=== PATIENT | male | born 1945 | race Caucasian/White ===

== ENCOUNTER → 2016-11-11 | Outpatient (CLI) | payer OTHER ==
[2016-11-11 09:06] LABS: HEMOGLOBIN 18.5 gm/dl (14.0-17.5); RED BLOOD COUNT 6.78 M/UL (4.20-5.50)
== END ==
LOC: LAB 08:32
PROVIDERS: Internal Medicine Hematology & Oncology
DX: D75.1 Secondary polycythemia (principal); D50.8 Other iron deficiency anemias
CPT/HCPCS: 36415; 85025

== ENCOUNTER → 2020-07-31 | Outpatient (CLI) | payer OTHER ==
[~2020-07-31] MED LIST: COSOPT EYE DROP10 ML EYEBOTH; ECOTRIN81 MG PO; MOBIC15 MG PO; NORVASC10 MG PO; PROSCAR5 MG PO; TRUSOPT 2% OP S10 ML EYEBOTH; XALATAN OP SOL2.5 ML EYEBOTH; ZOCOR20 MG PO
[2020-07-31 08:41] LABS: HEMOGLOBIN 18.4 gm/dl (14.0-17.5); RED BLOOD COUNT 6.64 M/UL (4.20-5.50); WHITE BLOOD COUNT 8.5 K/UL (4.5-11.0)
== END ==
LOC: LAB 08:26
PROVIDERS: Internal Medicine
DX: D75.1 Secondary polycythemia (principal); D58.8 Other specified hereditary hemolytic anemias
CPT/HCPCS: 36415; 85025

== ENCOUNTER → 2020-09-04 | Outpatient (CLI) | payer OTHER ==
[2020-09-04 09:12] LABS: HEMOGLOBIN 18.4 gm/dl (14.0-17.5); RED BLOOD COUNT 6.62 M/UL (4.20-5.50); WHITE BLOOD COUNT 7.7 K/UL (4.5-11.0)
== END ==
LOC: LAB 08:43
PROVIDERS: Internal Medicine
DX: D75.1 Secondary polycythemia (principal); D50.8 Other iron deficiency anemias
CPT/HCPCS: 36415; 85025

== ENCOUNTER → 2020-09-25 | Outpatient (CLI) | payer OTHER ==
[2020-09-25 09:11] LABS: HEMOGLOBIN 17.4 gm/dl (14.0-17.5); RED BLOOD COUNT 6.56 M/UL (4.20-5.50); WHITE BLOOD COUNT 6.9 K/UL (4.5-11.0)
== END ==
LOC: LAB 08:46
PROVIDERS: Internal Medicine
DX: D75.1 Secondary polycythemia (principal); D50.8 Other iron deficiency anemias
CPT/HCPCS: 36415; 85025

== ENCOUNTER → 2020-10-30 | Outpatient (CLI) | payer OTHER ==
[2020-10-30 08:20] LABS: HEMOGLOBIN 18.4 gm/dl (14.0-17.5); RED BLOOD COUNT 6.64 M/UL (4.20-5.50)
== END ==
LOC: LAB 08:04
PROVIDERS: Internal Medicine
DX: D75.1 Secondary polycythemia (principal); D50.8 Other iron deficiency anemias
CPT/HCPCS: 36415; 85025

== ENCOUNTER → 2020-11-27 | Outpatient (CLI) | payer OTHER ==
[2020-11-27 08:37] LABS: HEMOGLOBIN 18.4 gm/dl (14.0-17.5); RED BLOOD COUNT 6.65 M/UL (4.20-5.50); WHITE BLOOD COUNT 7.8 K/UL (4.5-11.0)
== END ==
LOC: LAB 08:07
PROVIDERS: Internal Medicine
DX: D75.1 Secondary polycythemia (principal); D50.8 Other iron deficiency anemias
CPT/HCPCS: 36415; 85025

== ENCOUNTER → 2020-12-25 | Outpatient (CLI) | payer OTHER ==
[2020-12-25 10:05] LABS: HEMOGLOBIN 18.4 gm/dl (14.0-17.5); RED BLOOD COUNT 6.62 M/UL (4.20-5.50); WHITE BLOOD COUNT 7.6 K/UL (4.5-11.0)
== END ==
LOC: LAB 08:49
PROVIDERS: Internal Medicine
DX: D75.1 Secondary polycythemia (principal); D50.8 Other iron deficiency anemias
CPT/HCPCS: 36415; 85025

== ENCOUNTER → 2021-02-01 | Outpatient (CLI) | payer OTHER ==
[2021-02-01 08:47] LABS: HEMOGLOBIN 18.1 gm/dl (14.0-17.5); RED BLOOD COUNT 6.53 M/UL (4.20-5.50); WHITE BLOOD COUNT 6.5 K/UL (4.5-11.0)
[2021-02-01 09:14] LABS: BUN/CREATININE RATIO 18 (0-10)
== END ==
LOC: LAB 08:10
PROVIDERS: Internal Medicine
DX: D75.1 Secondary polycythemia (principal); D50.8 Other iron deficiency anemias
CPT/HCPCS: 36415; 80053; 85025

== ENCOUNTER → 2021-03-11 | Outpatient (CLI) | payer OTHER ==
[2021-03-11 09:24] LABS: HEMOGLOBIN 18.3 gm/dl (14.0-17.5); RED BLOOD COUNT 6.57 M/UL (4.20-5.50); WHITE BLOOD COUNT 7.6 K/UL (4.5-11.0)
== END ==
LOC: LAB 08:59
PROVIDERS: Internal Medicine
DX: D75.1 Secondary polycythemia (principal); D50.8 Other iron deficiency anemias
CPT/HCPCS: 36415; 80053; 85025

== ENCOUNTER → 2021-04-09 | Outpatient (CLI) | payer OTHER ==
[2021-04-09 09:13] LABS: RED BLOOD COUNT 6.78 M/UL (4.20-5.50); WHITE BLOOD COUNT 7.9 K/UL (4.5-11.0)
== END ==
LOC: LAB 08:40
PROVIDERS: Internal Medicine
DX: D75.1 Secondary polycythemia (principal); D50.8 Other iron deficiency anemias
CPT/HCPCS: 36415; 80053; 85025

== ENCOUNTER → 2021-06-24 | Outpatient (CLI) | payer OTHER | LOC: HEART 5 12:36 | DX: R06.02 Shortness of breath (principal) | CPT/HCPCS: 93306 ==

== ENCOUNTER → 2021-08-06 | Outpatient (CLI) | payer OTHER ==
[2021-08-06 09:35] LABS: HEMOGLOBIN 17.7 gm/dl (14.0-17.5); RED BLOOD COUNT 6.37 M/UL (4.20-5.50); WHITE BLOOD COUNT 7.3 K/UL (4.5-11.0)
== END ==
LOC: LAB 09:04
PROVIDERS: Internal Medicine
DX: D75.1 Secondary polycythemia (principal); D50.8 Other iron deficiency anemias
CPT/HCPCS: 36415; 85025

== ENCOUNTER → 2021-09-30 | Outpatient (CLI) | payer OTHER ==
[2021-09-30 09:10] LABS: HEMOGLOBIN 18.2 gm/dl (14.0-17.5); RED BLOOD COUNT 6.46 M/UL (4.20-5.50); WHITE BLOOD COUNT 8.6 K/UL (4.5-11.0)
== END ==
LOC: LAB 08:43
PROVIDERS: Internal Medicine
DX: D75.1 Secondary polycythemia (principal); D50.8 Other iron deficiency anemias
CPT/HCPCS: 36415; 85025

== ENCOUNTER → 2021-11-05 | Outpatient (CLI) | payer OTHER ==
[2021-11-05 09:31] LABS: HEMOGLOBIN 18.6 gm/dl (14.0-17.5); RED BLOOD COUNT 6.68 M/UL (4.20-5.50); WHITE BLOOD COUNT 8.1 K/UL (4.5-11.0)
== END ==
LOC: LAB 09:14
PROVIDERS: Internal Medicine
DX: D75.1 Secondary polycythemia (principal); D50.8 Other iron deficiency anemias
CPT/HCPCS: 36415; 85025

== ENCOUNTER → 2021-12-09 | Outpatient (CLI) | payer OTHER ==
[2021-12-09 09:27] LABS: HEMOGLOBIN 17.6 gm/dl (14.0-17.5); RED BLOOD COUNT 6.37 M/UL (4.20-5.50); WHITE BLOOD COUNT 7.2 K/UL (4.5-11.0)
== END ==
LOC: LAB 08:44
PROVIDERS: Internal Medicine
DX: D50.8 Other iron deficiency anemias (principal); D75.1 Secondary polycythemia
CPT/HCPCS: 36415; 85025

== ENCOUNTER → 2021-12-31 | Outpatient (CLI) | payer OTHER ==
[~2021-12-31] MED LIST changes: -COSOPT EYE DROP10 ML EYEBOTH; +COSOPT EYE DROP10 ML EYELF; +FLOMAX 0.4 MG0.4 MG PO; +OMEGA 3 FISH O1 EACH PO; +PROTONIX40 M1 PO; +TENORMIN25 MG PO; +VITAMIN D3; -XALATAN OP SOL2.5 ML EYEBOTH; +XALATAN OP SOL2.5 ML EYELF
== END ==
LOC: LAB 11:18
DX: Z20.822 Contact with and (suspected) exposure to COVID-19 (principal)
CPT/HCPCS: U0002

== ENCOUNTER → 2022-01-04 | Day surgery (SDC) | payer OTHER | END | disposition home or self-care (01) | LOC: OR 07:39 | DX: K22.70 Barrett's esophagus without dysplasia (principal); K31.9 Disease of stomach and duodenum, unspecified; K31.7 Polyp of stomach and duodenum; K20.90 Esophagitis, unspecified without bleeding; G47.33 Obstructive sleep apnea (adult) (pediatric); I10 Essential (primary) hypertension; E78.5 Hyperlipidemia, unspecified; Z88.0 Allergy status to penicillin; Z79.82 Long term (current) use of aspirin; Z79.899 Other long term (current) drug therapy | CPT/HCPCS: J2704; J7040 ==

== ENCOUNTER → 2022-01-06 | Outpatient (CLI) | payer OTHER ==
[2022-01-06 09:15] LABS: HEMOGLOBIN 18.1 gm/dl (14.0-17.5); RED BLOOD COUNT 6.54 M/UL (4.20-5.50); WHITE BLOOD COUNT 7.3 K/UL (4.5-11.0)
== END ==
LOC: LAB 09:00
PROVIDERS: Internal Medicine
DX: D75.1 Secondary polycythemia (principal); D50.8 Other iron deficiency anemias
CPT/HCPCS: 36415; 85025

== ENCOUNTER → 2022-02-04 | Outpatient (CLI) | payer OTHER ==
[2022-02-04 09:08] LABS: HEMOGLOBIN 18.3 gm/dl (14.0-17.5); RED BLOOD COUNT 6.58 M/UL (4.20-5.50); WHITE BLOOD COUNT 8.1 K/UL (4.5-11.0)
== END ==
LOC: LAB 08:41
PROVIDERS: Internal Medicine
DX: D75.1 Secondary polycythemia (principal); D50.8 Other iron deficiency anemias
CPT/HCPCS: 36415; 85025

== ENCOUNTER → 2022-03-04 | Outpatient (CLI) | payer OTHER ==
[2022-03-04 09:51] LABS: HEMOGLOBIN 18.2 gm/dl (14.0-17.5); RED BLOOD COUNT 6.5 M/UL (4.20-5.50); WHITE BLOOD COUNT 8.2 K/UL (4.5-11.0)
== END ==
LOC: LAB 09:30
PROVIDERS: Internal Medicine
DX: D75.1 Secondary polycythemia (principal); D50.8 Other iron deficiency anemias
CPT/HCPCS: 36415; 84153; 85025